=== PATIENT | female | born 1945 | race African-American/Black ===

== ENCOUNTER → 2018-06-20 | Outpatient (CLI) | payer MEDICARE, OTHER ==
--- NOTE | 2018-06-21 09:48 | RAD ---
DATE: 06/20/2018 EXAM: MAMMO HOPE SCREENING BILATERAL HISTORY: Routine screening COMPARISON: 07/06/2017 This study was interpreted with the benefit of Computerized Aided Detection (CAD). Breast Density: SCATTERED The breast parenchyma shows scattered fibroglandular densities. Breast parenchyma level B. FINDINGS: 2-D and 3-D tomosynthesis imaging was performed in CC and MLO projections. No new or enlarging breast densities are seen. Minimal benign type calcifications present. No suspicious microcalcifications have developed. Benign-appearing lymph nodes are present in the left axilla. IMPRESSION: Stable mammograms without evidence of malignancy. BI-RADS CATEGORY: 1 NEGATIVE RECOMMENDED FOLLOW-UP: 12M 12 MONTH FOLLOW-UP PQRS compliance statement: Patient information was entered into a reminder system with a target due date for the next mammogram. Mammography is a sensitive method for finding small breast cancers, but it does not detect them all and is not a substitute for careful clinical examination. A negative mammogram does not negate a clinically suspicious finding and should not result in delay in biopsying a clinically suspicious abnormality. "Our facility is accredited by the [employer] Mamm[employer]."
== END | disposition home or self-care (01) ==
LOC: MAMMO 08:08
PROVIDERS: ATTEND Physician Assistant Surgical
DX: Z12.31 Encounter for screening mammogram for malignant neoplasm of breast (principal)
CPT/HCPCS: 77063; 77067